=== PATIENT | female | born 1995 | race Two or more races ===

== ENCOUNTER 2016-10-14 21:11 | Emergency (ER) | payer SELFPAY ==
[~2016-10-14] VITALS: Ht 167.6 cm; Wt 54.4 kg
[~2016-10-14 21:11] MED LIST: SULF1TAB24 PO
--- NOTE | 2016-10-14 21:41 | PHYS DOC ---
Adult General Chief Complaint Chief Complaint: ABDOMINAL PAIN HPI HPI 20-year-old female who presents with worsening left lower quadrant pain that radiates into her flank area for the last 3-4 days. Patient denies any dysuria or hematuria. She denies any urinary frequency. She denies any problems with passage of urine. She denies any fever or chills. She rates her pain a 10 out of 10 localized all to the left lower quadrant. She denies any history of kidney stones. She denies any history of abdominal surgeries. Patient states she has been able eat and drink without difficulty. She denies any stool abnormalities. Review of Systems Review of Systems Constitutional: Denies fever or chills [] Eyes: Denies change in visual acuity, redness, or eye pain [] HENT: Denies nasal congestion or sore throat [] Respiratory: Denies cough or shortness of breath [] Cardiovascular: No additional information not addressed in HPI [] GI: Has abdominal pain, has nausea, denies vomiting, denies bloody stools or diarrhea [] : Denies dysuria or hematuria [] Musculoskeletal: Denies back pain or joint pain [] Integument: Denies rash or skin lesions [] Neurologic: Denies headache, focal weakness or sensory changes [] Endocrine: Denies polyuria or polydipsia [] Current Medications Current Medications Current Medications Medications (Trade) Dose Ordered Sig/Cassie Start Time Stop Time Status Last Admin Dose Admin Ceftriaxone Sodium/Sodium Chloride (Rocephin/Iv Sodium Chloride 0.9% 50ml) 50 ml @ 100 mls/hr Q24H 10/14/16 22:30 10/14/16 22:34 100 MLS/HR Ketorolac Tromethamine (Toradol) 30 mg 1X ONCE 10/14/16 22:00 10/14/16 22:01 DC 10/14/16 22:21 30 MG Ondansetron HCl 4 mg 4 mg 1X ONCE 10/14/16 22:00 10/14/16 22:01 DC 10/14/16 22:20 4 MG Sodium Chloride (Iv Sodium Chloride 0.9% 1000ml Bag) 1,000 ml @ 1,000 mls/hr 1X ONCE 10/14/16 22:00 10/14/16 22:59 DC 10/14/16 22:20 1,000 MLS/HR Allergies Allergies Allergies Coded Allergies Type Severity Reaction Last Updated Verified No Known Drug Allergies 10/14/16 No Physical Exam Physical Exam Constitutional: Well developed, well nourished, no acute distress, non-toxic appearance. [] HENT: Normocephalic, atraumatic, bilateral external ears normal, oropharynx moist, no oral exudates, nose normal. [] Eyes: PERRLA, EOMI, conjunctiva normal, no discharge. [] Neck: Normal range of motion, no tenderness, supple, no stridor. [] Cardiovascular:Heart rate regular rhythm, no murmur [] Lungs & Thorax: Bilateral breath sounds clear to auscultation [] Abdomen: Bowel sounds normal, soft, moderate LLQ tenderness, no masses, no pulsatile masses. [] Skin: Warm, dry, no erythema, no rash. [] Back: No tenderness, left CVA tenderness. [] Extremities: No tenderness, no cyanosis, no clubbing, ROM intact, no edema. [] Neurologic: Alert and oriented X 3, normal motor function, normal sensory function, no focal deficits noted. [] Psychologic: Affect normal, judgement normal, mood normal. [] Current Patient Data Vital Signs Vital Signs Date Time Temp Pulse Resp B/P Pulse Ox O2 Delivery O2 Flow Rate FiO2 10/14/16 21:42 98.9 130 18 118/72 100 Room Air 98.9 Lab Values Laboratory Tests Test 10/14/16 21:30 10/14/16 21:38 Urine Collection Type Unknown Urine Color Yellow Urine Clarity Clear Urine pH 5.5 Urine Specific [place] 1.020 Urine Protein 20mg/dL (NEG-TRACE) Urine Glucose (UA) 500mg/dL (NEG) Urine Ketones (Stick) Negativemg/dL (NEG) Urine Blood Large (NEG) Urine Nitrite Negative (NEG) Urine Bilirubin Negative (NEG) Urine Urobilinogen Dipstick 1.0mg/dL (0.2 mg/dL) Urine Leukocyte Esterase Small (NEG) Urine RBC 11-20/HPF (0-2) Urine WBC 11-20/HPF (0-4) Urine Squamous Epithelial Cells Mod/LPF Urine Bacteria Few/HPF (0-FEW) Urine Mucus Mod/LPF Urine Test Negative (NEG) White Blood Count 21.9x10^3/uL (4.0-11.0) H Red Blood Count 3.92x10^6/uL (3.50-5.40) Hemoglobin 11.3g/dL (12.0-15.5) L Hematocrit 34.9% (36.0-47.0) L Mean Corpuscular Volume 89fL (79-100) Mean Corpuscular Hemoglobin 29pg (25-35) Mean Corpuscular Hemoglobin Concent 32g/dL (31-37) Red Cell Distribution Width 13.3% (11.5-14.5) Platelet Count 254x10^3/uL (140-400) Neutrophils (%) (Auto) 86% (31-73) H Lymphocytes (%) (Auto) 4% (24-48) L Monocytes (%) (Auto) 10% (0-9) H Eosinophils (%) (Auto) 0% (0-3) Basophils (%) (Auto) 0% (0-3) Neutrophils # (Auto) 18.9x10^3uL (1.8-7.7) H Lymphocytes # (Auto) 0.9x10^3/uL (1.0-4.8) L Monocytes # (Auto) 2.1x10^3/uL (0.0-1.1) H Eosinophils # (Auto) 0.0x10^3/uL (0.0-0.7) Basophils # (Auto) 0.0x10^3/uL (0.0-0.2) Segmented Neutrophils % 72% (35-66) H Band Neutrophils % 14% (0-9) H Lymphocytes % 7% (24-48) L Monocytes % 7% (0-10) Toxic Granulation Slight Toxic Vacuolation Slight Platelet Estimate Adequate (ADEQUATE) Sodium Level 139mmol/L (136-145) Potassium Level 3.1mmol/L (3.5-5.1) L Chloride Level 102mmol/L (98-107) Carbon Dioxide Level 22mmol/L (21-32) Anion Gap 15 (6-14) H Blood Urea Nitrogen 14mg/dL (7-20) Creatinine 1.1mg/dL (0.6-1.0) H Estimated GFR (Cockcroft-Gault) 63.3 Glucose Level 152mg/dL (70-99) H Calcium Level 9.6mg/dL (8.5-10.1) Laboratory Tests 10/14/16 21:38 Laboratory Tests 10/14/16 21:38 EKG EKG [] Radiology/Procedures Radiology/Procedures CT the abdomen pelvis without IV contrast: There is minimal dependent atelectasis. There is no pleural effusion. The heart is not enlarged. Solid organ evaluation is limited without contrast. Liver, gallbladder, spleen, pancreas, and adrenals are unremarkable. There is no nephrolithiasis. There is minimal stranding of the left perinephric fat. Left ureter is not dilated and is not well followed. No definite calculus along the expected course of either ureter is apparent. Aorta is normal caliber. Subcentimeter mesenteric and retroperitoneal lymph nodes may be reactive. Lack of IV or oral contrast limits evaluation of bowel. There is no bowel obstruction or mural thickening. Appendix is probably visualized extending down into the pelvis. Colon is grossly unremarkable. There is no bladder calculus. There are a few calcified phleboliths. There is probably a right ovarian cyst. There is no free pelvic fluid. Bony structures are intact. Course & Med Decision Making Course & Med Decision Making Pertinent Labs and Imaging studies reviewed. (See chart for details) 20-year-old female presents with worsening left lower quadrant pain and left- sided flank pain will obtain CT of her abdomen and pelvis to rule out any acute cause. At this time the highest likelihood is a ureteral stone. I will also obtain lab work to assess her kidney function and urinalysis to rule out any infection or . IV will be placed in Toradol and Zofran and a fluid bolus be administered. Her heart rate is rapid in the 120s which I believe is likely secondary to pain and possibly mild dehydration. CT the abdomen pelvis revealed signs of left sided pyelonephritis with no obstructing ureteral calculus seen. Her urine reveals a negative . An IV dose or Rocephin was given and I will be placing the patient on a course of antibiotics with pain control to follow closely with her primary care doctor at this time as this is an uncomplicated pyelonephritis. Her pain was well- controlled. She was discharged to follow with her primary doctor in the next 1- 2 days. Her bloodwork revealed a preserved kidney function and an elevated white count of 22,000 with a slight bandemia which is consistent with a pyelonephritic infection. After receiving a IV fluid bolus of 1 L normal saline patient's heart rate has improved dramatically to 104. Dragon Disclaimer Aixa Disclaimer This electronic medical record was generated, in whole or in part, using a voice recognition dictation system. Departure Departure Impression: Primary Impression: Pyelonephritis Disposition: 01 HOME, SELF-CARE Condition: IMPROVED Patient Instructions: Pyelonephritis, Adult, [id number] Additional Instructions: Please take your pain medication and your antibiotics as prescribed. Return to the ER if you develop any worsening of your symptoms. Follow up with your primary doctor in the next 2-3 days. Scripts Sulfamethoxazole/Trimethoprim (Bactrim Ds Tablet)1 Each Tablet1 Tab PO BID #14 TAB Prov:LILLIAN GALLAGHER DO 10/14/16 Ondansetron Hcl (Zofran)4 Mg Tablet4 Mg PO BID PRN NAUSEA/VOMITING #14 TAB Prov:LILLIAN GALLAGHER DO 10/14/16 Hydrocodone/Apap 5-325 ([place] 5-325 Tablet)1 Each Tablet1 Tab PO PRN Q6HRS PRN PAIN #10 TAB Prov:LILLIAN GALLAGHER DO 10/14/16 LILLIAN GALLAGHER DO Oct 14, 2016 21:42
[2016-10-14 21:44] LABS: BASO % 0 % (0-3); EOS % 0 % (0-3); HEMATOCRIT 34.9 % (36.0-47.0); HEMOGLOBIN 11.3 g/dL (12.0-15.5); LYMPH # 0.9 x10^3/uL (1.0-4.8); LYMPH % 4 % (24-48); MEAN CORPUSCULAR HEMOGLOBIN 29 pg (25-35); MEAN CORPUSCULAR HGB CONC 32 g/dL (31-37); MEAN CORPUSCULAR VOLUME 89 fL (79-100); MONO % 10 % (0-9); NEUT % 86 % (31-73); PLATELET COUNT 254 x10^3/uL (140-400); RED BLOOD COUNT 3.92 x10^6/uL (3.50-5.40); RED CELL DISTRIBUTION WIDTH 13.3 % (11.5-14.5); WHITE BLOOD COUNT 21.9 x10^3/uL (4.0-11.0)
[2016-10-14 21:48] LABS: NEG OBC UR NEG; POS OBC UR POS
[2016-10-14 21:50] LABS: BILIRUBIN,URINE NEGATIVE (NEG); GLUCOSE,URINE 500 mg/dL (NEG); NITRITE,URINE NEGATIVE (NEG); PH,URINE 5.5
[2016-10-14 21:56] LABS: CALCIUM 9.6 mg/dL (8.5-10.1); CREATININE 1.1 mg/dL (0.6-1.0); GFR 63.3; POTASSIUM 3.1 mmol/L (3.5-5.1)
[2016-10-14 21:57] LABS: BACTERIA,URINE FEW /HPF (0-FEW); PROTEIN,URINE 20 mg/dL (NEG-TRACE); SQUAMOUS EPITHELIAL CELL,UR MOD /LPF
[2016-10-14] MEDS ORDERED: IV NORMAL SALINE 1000ML BAG 1,000 ML IV ONE (22:00)
[2016-10-14] MEDS ORDERED: ONDANSETRON PF 4 MG/2 ML VIAL. IV ONE (22:00)
[2016-10-14] MEDS ORDERED: KETOROLAC TROMETHAMINE 30 MG/ML SYRINGE. IV ONE (22:00)
[2016-10-14 22:21] LABS: PLT ESTIMATE ADEQUATE (ADEQUATE); TOXIC GRANULATION SLIGHT; TOXIC VACUOLATION SLIGHT
--- NOTE | 2016-10-14 22:22 | RAD ---
PROCEDURE CT abdomen and pelvis without contrast. HISTORY Severe left flank pain beginning Lee. TECHNIQUE Axial images and coronal and sagittal re-formatted images are provided. One or more of the following individualized dose reduction techniques were utilized for this exam: 1. Automated exposure control. 2. Adjustment of the mA and/or kV according to patient's size. 3. Use of iterative reconstruction technique. COMPARISON None. FINDINGS There is minimal dependent atelectasis. There is no pleural effusion. The heart is not enlarged. Solid organ evaluation is limited without contrast. Liver, gallbladder, spleen, pancreas, and adrenals are unremarkable. There is no nephrolithiasis. There is minimal stranding of the left perinephric fat. Left ureter is not dilated and is not well followed. No definite calculus along the expected course of either ureter is apparent. Aorta is normal caliber. Subcentimeter mesenteric and retroperitoneal lymph nodes may be reactive. Lack of IV or oral contrast limits evaluation of bowel. There is no bowel obstruction or mural thickening. Appendix is probably visualized extending down into the pelvis. Colon is grossly unremarkable. There is no bladder calculus. There are a few calcified phleboliths. There is probably a right ovarian cyst. There is no free pelvic fluid. Bony structures are intact. IMPRESSION No obstructing or nonobstructing calculus. Minimal stranding of the left perinephric fat. Please correlate with any concern for pyelonephritis and correlate with laboratory values. Differential considerations would also include recently passed calculus. Electronically signed by: Luis Carlos Justice MD (Oct 14, 2016 22:21:33)
[2016-10-14] MEDS ORDERED: CEFTRIAXONE SODIUM 1 GM in IV NORMAL SALINE 50ML 50 ML IV SCH (22:30)
[2016-10-14 23:00] VITALS: BP 97/63
[2016-10-14] MEDS ORDERED: ONDA4TAB7 PO (23:12)
[2016-10-14] MEDS ORDERED: SULF1TAB24 PO (23:12)
[2016-10-14] MEDS ORDERED: HYDR-971 PO (23:12)
== END 2016-10-14 23:30 | disposition home or self-care (01) ==
LOC: MERGE 21:11 → ER 21:11
DX: N12 Tubulo-interstitial nephritis, not specified as acute or chronic (principal); R11.0 Nausea
CPT/HCPCS: 36415; 74176; 80048; 81001; 81025; 85007; 85027; 87086; 96365; 96375; 99285; J0696; J1885; J2405; J7030

== ENCOUNTER 2017-06-18 18:48 | Emergency (ER) | payer OTHER ==
[~2017-06-18] VITALS: Ht 162.6 cm; Wt 57.2 kg
[2017-06-18 18:48] VITALS: BP 132/85
[~2017-06-18 18:48] MED LIST changes: +HYDR-971 PO; +ONDA4TAB7 PO
--- NOTE | 2017-06-18 19:25 | PHYS DOC ---
Past Medical History Past Medical History: No Pertinent History Past Surgical History: No Surgical History Alcohol Use: None Drug Use: None Adult General Chief Complaint Chief Complaint: ANXIETY/PANIC ATTACK HPI HPI Patient is a 21 year old female presents to the emergency Department with resolved complaints of anxiety. Patient states for the last week she's had intermittent bouts of anxiety because refill tight in her chest. She states that they are fleeting and last less than 5 minutes. She has no associated symptoms. She doesn't recall that anxiety begins in relationship to motion or mental stress or intake of food or drink. Review of Systems Review of Systems Constitutional: Denies fever or chills [] Eyes: Denies change in visual acuity, redness, or eye pain [] HENT: Denies nasal congestion or sore throat [] Respiratory: Denies cough or shortness of breath [] Cardiovascular: No additional information not addressed in HPI [] GI: Denies abdominal pain, nausea, vomiting, bloody stools or diarrhea [] : Denies dysuria or hematuria [] Musculoskeletal: Denies back pain or joint pain [] Integument: Denies rash or skin lesions [] Neurologic: Denies headache, focal weakness or sensory changes [] Endocrine: Denies polyuria or polydipsia [] Allergies Allergies Allergies Coded Allergies Type Severity Reaction Last Updated Verified No Known Drug Allergies 05/19/16 No Physical Exam Physical Exam Constitutional: Well developed, well nourished, no acute distress, non-toxic appearance. [] HENT: Normocephalic, atraumatic, bilateral external ears normal, oropharynx moist, no oral exudates, nose normal. [] Eyes: PERRLA, EOMI, conjunctiva normal, no discharge. [] Neck: Normal range of motion, no tenderness, supple, no stridor. [] Cardiovascular:Heart rate regular rhythm, no murmur [] Lungs & Thorax: Bilateral breath sounds clear to auscultation [] Abdomen: Bowel sounds normal, soft, no tenderness, no masses, no pulsatile masses. [] Skin: Warm, dry, no erythema, no rash. [] Back: No tenderness, no CVA tenderness. [] Extremities: No tenderness, no cyanosis, no clubbing, ROM intact, no edema. [] Neurologic: Alert and oriented X 3, normal motor function, normal sensory function, no focal deficits noted. [] Psychologic: Affect normal, judgement normal, mood normal. [] EKG EKG [] Radiology/Procedures Radiology/Procedures [] Course & Med Decision Making Course & Med Decision Making Pertinent Labs and Imaging studies reviewed. (See chart for details) []There is no historical, physical exam, that it would indicate a need to consider further evaluate the patient for pulmonary embolism at this time. I've applied a properly developed an elevated evidence-based risk stratification protocol to this patient's presentation. I've identified the patient as a low risk for PE via Wells PE rule. Dragon Disclaimer Dragon Disclaimer This electronic medical record was generated, in whole or in part, using a voice recognition dictation system. Departure Departure Impression: Primary Impression: Anxiety Disposition: 01 HOME, SELF-CARE Condition: STABLE Referrals: NO PCP (PCP) [facility] Patient Instructions: Anxiety and Panic Attacks RIAN WYATT STRAIGHTENING MACHINE OPERATOR Jun 18, 2017 19:25
== END 2017-06-18 19:36 | disposition home or self-care (01) ==
LOC: ER 18:48
DX: F41.9 Anxiety disorder, unspecified (principal); R07.89 Other chest pain
CPT/HCPCS: 99281

== ENCOUNTER 2018-02-03 00:59 | Emergency (ER) | payer SELFPAY, OTHER ==
[2018-02-03 01:28] LABS: URINE HCG POC HCG NEGATIVE (Negative)
[2018-02-03] MEDS: diphenhydrAMINE 50 MG/ML VIAL IVP (02:08)
[2018-02-03] MEDS: METOCLOPRAMIDE HCL 10 MG/2 ML VIAL. IV (02:09)
[2018-02-03] MEDS: KETOROLAC 30 MG/ML INJ. IV (02:09)
[2018-02-03] MEDS: DEXAMETHASONE SOD PHOS 20 MG/5 ML VIAL. IV (02:09)
[2018-02-03] MEDS: IV NORMAL SALINE 1000ML BAG 1,000 ML IV (02:10)
== END 2018-02-03 03:18 | disposition home or self-care (01) ==
LOC: ER 00:59
DX: G43.909 Migraine, unspecified, not intractable, without status migrainosus (principal)
CPT/HCPCS: 81025; 96361; 96374; 96375; 99284-25; J1100; J1200; J1885; J2765; J7030

== ENCOUNTER 2019-03-21 23:49 | Emergency (ER) | payer SELFPAY ==
[~2019-03-21] VITALS: Ht 167.6 cm; Wt 64.0 kg
[~2019-03-21 23:49] MED LIST changes: +HYDR-3164 PO; -HYDR-971 PO
[2019-03-22 00:10] VITALS: BP 141/98
--- NOTE | 2019-03-22 00:24 | PHYS DOC ---
Past Medical History Past Medical History: Migraines Past Surgical History: No Surgical History Alcohol Use: Rarely Drug Use: None Adult General Chief Complaint Chief Complaint: EARACHE/EAR PAIN HPI HPI Patient is a 23-year-old female who presents with complaint of right lower dental pain that has been present for the last few days. Patient states that she has an appointment with the dentist in the morning but she states the pain is so bad that she is not able to sleep. She states that she is already taking clindamycin for antibiotics. She denies any fever. She rates pain at an 8-9 out of 10. She states the pain radiates up into her right ear.[] Review of Systems Review of Systems Constitutional: Denies fever or chills [] HENT: Complains of right lower dental and ear pain[] Respiratory: Denies cough or shortness of breath [] Cardiovascular: No additional information not addressed in HPI [] Integument: Denies rash or skin lesions [] Neurologic: Denies headache, focal weakness or sensory changes [] Current Medications Current Medications Current Medications Medications (Trade) Dose Ordered Sig/Cassie Start Time Stop Time Status Last Admin Dose Admin Acetaminophen/ Hydrocodone Bitart (Lortab 5/325) 1 tab 1X ONCE 03/22/19 01:00 03/22/19 01:00 DC 03/22/19 00:44 1 TAB Clindamycin HCl (Cleocin) 300 mg 1X ONCE 03/22/19 01:00 03/22/19 01:00 DC Allergies Allergies Allergies Coded Allergies Type Severity Reaction Last Updated Verified No Known Drug Allergies 05/19/16 No Physical Exam Physical Exam Constitutional: Well developed, well nourished, no acute distress, non-toxic appearance. [] HENT: Normocephalic, atraumatic, right TM is normal-appearing, dentition is fairly good with note of eruption of right lower third molar/was some tooth. [] Neck: Normal range of motion, no tenderness, supple, no stridor. [] Cardiovascular:Heart rate regular rhythm, no murmur [] Lungs & Thorax: Bilateral breath sounds clear to auscultation [] Current Patient Data Vital Signs Vital Signs Date Time Temp Pulse Resp B/P (MAP) Pulse Ox O2 Delivery O2 Flow Rate FiO2 03/22/19 00:44 16 97 Room Air 03/22/19 00:10 98.4 79 141/98 (112) 98.4 EKG EKG [] Radiology/Procedures Radiology/Procedures [] Course & Med Decision Making Course & Med Decision Making Pertinent Labs and Imaging studies reviewed. (See chart for details) [] Dragon Disclaimer Dragon Disclaimer This electronic medical record was generated, in whole or in part, using a voice recognition dictation system. Departure Departure Impression: Primary Impression: Pain, dental Disposition: HOME, SELF-CARE Condition: STABLE Referrals: NO PCP (PCP) Patient Instructions: Dental Pain Additional Instructions: Keep appointment with dentist tomorrow. RACHID LOMELI Jr. DO Mar 22, 2019 00:24
[2019-03-22] MEDS ORDERED: CLINDAMYCIN HCL 150 MG CAPSULE. PO ONE (01:00)
[2019-03-22] MEDS ORDERED: HYDROcodone/APAP 5/325MG 1 TAB TABLET PO ONE (01:00)
== END 2019-03-22 00:45 | disposition home or self-care (01) ==
LOC: ER 23:49
DX: K08.89 Other specified disorders of teeth and supporting structures (principal); H92.01 Otalgia, right ear
CPT/HCPCS: 99282